=== PATIENT | male | born 1950 | race Two or more races ===

== ENCOUNTER 2025-03-15 12:00 | Inpatient (IN) | payer OTHER ==
[~2025-03-15] VITALS: Ht 170.2 cm; Wt 52.2 kg
[2025-03-15] MEDS ORDERED: GLIPIZIDE ER2.5 MG PO (12:11)
[2025-03-15] MEDS ORDERED: NAMENDA XR7 MG PO (12:11)
[2025-03-15] MEDS ORDERED: METFORMIN HCL500 M3 PO (12:12)
[2025-03-15] MEDS ORDERED: TRAZODONE HCL150 MG PO (12:13)
[2025-03-15 12:18] VITALS: BP 170/81
[2025-03-22] MEDS ORDERED: CEFTRIAXONE SODIUM 2,000 MG VIAL ONE (08:30)
[2025-03-22] MEDS ORDERED: METRONIDAZOLE/SODIUM CHLORIDE 500 MG/100 ML PIGGYBACK IV ONE ×2 (08:30→17:08)
[2025-03-22] MEDS ORDERED: LIDOCAINE HCL 1%/EPINEPHRINE 20ML VIAL IJ ONE (10:07)
[2025-03-22] MEDS ORDERED: hydrALAZINE HCL 20 MG VIAL ONE (11:39)
[2025-03-22] MEDS ORDERED: SUGAMMADEX SODIUM 200 MG/2 ML VIAL IV ONE (11:39)
[2025-03-22] MEDS ORDERED: ENALAPRILAT DIHYDRATE 1.25 MG/ML VIAL IV ONE (11:49)
[2025-03-22] MEDS ORDERED: LACTOBACILLUS ACIDOPHILUS 1 CAP CAP PO SCH (12:37)
[2025-03-22] MEDS ORDERED: FAMOTIDINE/PF 20 MG/2 ML VIAL IV PUSH SCH (12:37)
[2025-03-22] MEDS ORDERED: TAMSULOSIN HCL 0.4 MG CAP PO SCH (12:37)
[2025-03-22] MEDS ORDERED: OxyCODONE HCL 5 MG TABLET (ROXICODONE) PO PRN (12:45)
[2025-03-22] MEDS ORDERED: RINGERS SOLUTION,LACTATED 1,000 ML IV SCH (12:45)
[2025-03-22] MEDS ORDERED: ONDANSETRON HCL 2 MG/ML VIAL IV PRN (12:45)
[2025-03-22] MEDS ORDERED: MORPHINE SULFATE 4 MG/ML CARTRIDGE IV PRN (12:45)
[2025-03-22] MEDS ORDERED: HYOSCYAMINE SULFATE 0.125 MG TAB.SUBL SL SCH (13:00)
[2025-03-22] MEDS ORDERED: FAMOTIDINE/PF 20 MG/2 ML VIAL ONE (14:02)
[2025-03-22] MEDS ORDERED: METRONIDAZOLE/SODIUM CHLORIDE 500 MG/100 ML PIGGYBACK IV SCH (17:00)
[2025-03-22] MEDS ORDERED: GABAPENTIN 300 MG CAPSULE PO SCH (17:00)
[2025-03-22] MEDS ORDERED: ACETAMINOPHEN 500 MG GEL..CAP PO SCH (18:00)
[2025-03-22 18:52] VITALS: BP 132/81; O2SAT 98
[2025-03-22] MEDS ORDERED: CIPROFLOXACIN IN 5 % DEXTROSE 400 MG/200 ML PIGGYBAG IV SCH (21:00)
[2025-03-23 01:02] VITALS: BP 143/75; O2SAT 98
[2025-03-23 07:34] LABS: BASO % 0.2 % (0.1-1.2); EOS # 0.00 (0.04-0.54); EOS % 0.0 % (0.7-7.0); LYMPH # 1.19 (1.18-3.74); LYMPH % 9.3 % (19.3-53.1); MEAN PLATELET VOLUME 9.40 fl (9.4-12.4); MONO # 1.14 (0.24-0.82); MONO % 8.9 % (4.7-12.5); NEUT # 10.35 (1.56-6.13); NEUT % 81.3 % (34.0-71.1); RED CELL DISTRIBUTION WIDTH 13.3 % (11.6-14.4)
[2025-03-23 08:00] VITALS: BP 166/76; O2SAT 98
[2025-03-23 08:09] LABS: BUN CREA RATIO 13.0 (7.0-25.0); CREATININE SERUM 1.26 mg/dL (0.70-1.30); GFR 55.64; GLUCOSE FASTING 198.0 mg/dL (65-100); OSMOLALITY SERUM 281.0 MOSM/KG (275-295)
[2025-03-23] MEDS ORDERED: MAGNESIUM SULFATE IN WATER 50 ML IV NR (13:00)
[2025-03-23 16:00] VITALS: BP 164/88; O2SAT 98
[2025-03-23] MEDS ORDERED: ENOXAPARIN SODIUM 40 MG/0.4 ML SYRINGE SUBCUTANEO SCH (17:00)
[2025-03-24 00:27] VITALS: BP 140/83; O2SAT 97
[2025-03-24 08:31] VITALS: BP 158/92; O2SAT 98
[2025-03-24] MEDS ORDERED: LOSARTAN POTASSIUM 50 MG TABLET PO SCH (09:00)
[2025-03-24] MEDS ORDERED: ENOXAPARIN SODIUM 40 MG/0.4 ML SYRINGE SUBCUTANEO SCH (09:00)
[2025-03-24] MEDS ORDERED: hydrALAZINE HCL 20 MG VIAL IV PRN (09:15)
[2025-03-24] MEDS ORDERED: LOSARTAN POTASSIUM 50 MG TABLET PO NR (13:30)
[2025-03-24 16:36] VITALS: BP 96/67; O2SAT 94
[2025-03-25 01:13] VITALS: BP 102/59; O2SAT 98
[2025-03-25 07:11] LABS: BASO % 0.3 % (0.1-1.2); EOS # 1.36 (0.04-0.54); EOS % 9.8 % (0.7-7.0); LYMPH # 2.04 (1.18-3.74); LYMPH % 14.7 % (19.3-53.1); MEAN PLATELET VOLUME 9.20 fl (9.4-12.4); MONO # 1.00 (0.24-0.82); MONO % 7.2 % (4.7-12.5); NEUT # 9.37 (1.56-6.13); NEUT % 67.7 % (34.0-71.1); RED CELL DISTRIBUTION WIDTH 13.3 % (11.6-14.4)
[2025-03-25 07:37] LABS: BUN CREA RATIO 15.0 (7.0-25.0); CREATININE SERUM 1.23 mg/dL (0.70-1.30); GFR 57.21; GLUCOSE FASTING 141.0 mg/dL (65-100); OSMOLALITY SERUM 282.0 MOSM/KG (275-295)
[2025-03-25 08:00] VITALS: BP 125/81; O2SAT 97
[2025-03-25] MEDS ORDERED: LOSARTAN POTASSIUM 50 MG TABLET PO SCH (09:00)
[2025-03-25 16:34] VITALS: BP 103/67; O2SAT 96
[2025-03-25] MEDS ORDERED: DEXTROSE 50 % IN WATER 0.5 G/ML DISP.SYRIN IV PRN (17:15)
[2025-03-25] MEDS ORDERED: INSULIN LISPRO 1,000 UNIT/10 ML UNITS SUBCUTANEO PRN (17:15)
[2025-03-25] MEDS ORDERED: MEMANTINE HCL 10 MG TABLET PO SCH (21:00)
[2025-03-25] MEDS ORDERED: TRAZODONE HCL 50 MG TABLET PO SCH (21:00)
[2025-03-25] MEDS ORDERED: BUSPIRONE HCL 15 MG TABLET PO SCH (21:00)
[2025-03-26 00:20] VITALS: BP 111/70; O2SAT 97
[2025-03-26 06:25] LABS: BASO % 0.4 % (0.1-1.2); EOS # 1.62 (0.04-0.54); LYMPH # 1.84 (1.18-3.74); LYMPH % 18.5 % (19.3-53.1); MEAN PLATELET VOLUME 9.20 fl (9.4-12.4); MONO # 0.79 (0.24-0.82); MONO % 7.9 % (4.7-12.5); NEUT # 5.65 (1.56-6.13); NEUT % 56.7 % (34.0-71.1); RED CELL DISTRIBUTION WIDTH 13.5 % (11.6-14.4)
[2025-03-26 06:37] LABS: EOS % 16.2 % (0.7-7.0)
[2025-03-26 06:50] LABS: BUN CREA RATIO 15.0 (7.0-25.0); CREATININE SERUM 1.15 mg/dL (0.70-1.30); GFR 61.83; GLUCOSE FASTING 128.0 mg/dL (65-100); OSMOLALITY SERUM 294.0 MOSM/KG (275-295)
[2025-03-26 08:00] VITALS: BP 170/94; O2SAT 99
== END 2025-03-26 14:41 | disposition home or self-care (01) | DRG 330 ==
LOC: SURG 03-22 07:00 → O/R 03-22 08:00 → SURG 03-22 12:00 → SURH 03-22 14:27
PROVIDERS: ADMIT Surgery; ATTEND Surgery
PROC: 0DTP4ZZ Resection of Rectum, Percutaneous Endoscopic Approach (ICD-10-PCS; 2025-03-22)
PROC: 0WQF4ZZ Repair Abdominal Wall, Percutaneous Endoscopic Approach (ICD-10-PCS; 2025-03-22)
PROC: 0DNW4ZZ Release Peritoneum, Percutaneous Endoscopic Approach (ICD-10-PCS; 2025-03-22)
PROC: 0DJD8ZZ Inspection of Lower Intestinal Tract, Via Natural or Artificial Opening Endoscopic (ICD-10-PCS; 2025-03-22)
PROC: 0DBE4ZZ Excision of Large Intestine, Percutaneous Endoscopic Approach (ICD-10-PCS; principal; 2025-03-22 07:00)
DX: Z43.3 Encounter for attention to colostomy (principal); K57.20 Diverticulitis of large intestine with perforation and abscess without bleeding; K66.0 Peritoneal adhesions (postprocedural) (postinfection); K63.5 Polyp of colon; K43.5 Parastomal hernia without obstruction or gangrene